=== PATIENT | male | born 1985 | race Caucasian/White ===

== ENCOUNTER 2022-08-29 03:15 | Emergency (ER) | payer MEDICAID ==
[~2022-08-29] VITALS: Ht 182.9 cm; Wt 170.0 kg
[2022-08-29 03:18] VITALS: BP 152/90
[2022-08-29] MEDS ORDERED: ONDANSETRON 4MG ODT PO ONE (04:15)
[2022-08-29] MEDS ORDERED: MAGNESIUM/ALUMINUM HYDROXIDE/SIMETHICONE 30ML UDC PO ONE (04:15)
[2022-08-29] MEDS ORDERED: VISCOUS LIDOCAINE 2% 15 ML UDC PO ONE (04:15)
== END 2022-08-29 04:36 | disposition home or self-care (01) ==
LOC: ER 03:29
DX: K29.70 Gastritis, unspecified, without bleeding (principal); E66.9 Obesity, unspecified; Z68.43 Body mass index [BMI] 50.0-59.9, adult; Z98.890 Other specified postprocedural states
CPT/HCPCS: 99283; Q0162; 99284

== ENCOUNTER 2022-08-29 05:00 | Emergency (ER) | payer MEDICAID ==
[~2022-08-29] VITALS: Ht 188 cm; Wt 165.0 kg
[2022-08-29] MEDS ORDERED: LIDOCAINE 5% PATCH TOP SCH (09:45)
[2022-08-29] MEDS ORDERED: ACETAMINOPHEN 325MG TABLET PO ONE (09:45)
[2022-08-29] MEDS ORDERED: KETOROLAC 60MG/2ML VIAL IM ONE (09:45)
[2022-08-29 10:08] VITALS: BP 131/69
== END 2022-08-29 12:02 | disposition home or self-care (01) ==
LOC: ER 05:00
DX: G89.29 Other chronic pain (principal); M54.9 Dorsalgia, unspecified; Z98.890 Other specified postprocedural states; Z90.49 Acquired absence of other specified parts of digestive tract
CPT/HCPCS: 96372; 99283; J1885

== ENCOUNTER 2022-08-29 14:09 | Emergency (ER) | payer MEDICAID ==
[~2022-08-29] VITALS: Ht 185.4 cm; Wt 160.0 kg
[2022-08-29 14:58] VITALS: BP 148/82
== END 2022-08-29 18:43 | disposition left against medical advice (07) ==
LOC: ER 14:09
DX: Z53.21 Procedure and treatment not carried out due to patient leaving prior to being seen by health care provider (principal)